=== PATIENT | female | born 1990 | race Two or more races ===

== ENCOUNTER 2019-12-15 09:20 | Emergency (ER) | payer MEDICAID, OTHER ==
[~2019-12-15] VITALS: Ht 152.4 cm; Wt 68.0 kg
[2019-12-15 09:27] VITALS: BP 132/85
[2019-12-16] MEDS ORDERED: CT SWABBABLE VALVE TRANS SET 1 EA INFUS.SET MC ONE (00:39)
[2019-12-16] MEDS ORDERED: IOHEXOL-350 100 ML VIAL IV ONE (00:39)
[2019-12-16] MEDS ORDERED: IV NS 0.9% 250 ML IV ONE (00:40)
== END 2019-12-15 09:49 | disposition home or self-care (01) ==
LOC: ER 09:24
DX: O26.892 Other specified pregnancy related conditions, second trimester (principal); L29.9 Pruritus, unspecified; Z3A.01 Less than 8 weeks gestation of pregnancy
CPT/HCPCS: J7050; Q9967